=== PATIENT | female | born 1940 | race Caucasian/White ===

== ENCOUNTER 2021-09-08 11:01 | Day surgery (SDC) | payer OTHER ==
[2021-09-07 12:43] LABS: BASOPHILS % (AUTO) 0.8 % (0-1); EOSINOPHILS # (AUTO) 0.2 X10'3 (0-0.9); HEMATOCRIT 43.7 % (35.0-45.0); HEMOGLOBIN 14.4 g/dl (12.0-16.0); LYMPHOCYTES # (AUTO) 1.7 X10'3 (1.1-4.8); LYMPHOCYTES % (AUTO) 28.3 % (21-51); MEAN CORPUSCULAR HEMOGLOBIN 30.3 PG (27.0-31.0); MEAN CORPUSCULAR HGB CONC 32.9 g/dL (33.0-36.5); MEAN PLATELET VOLUME 8.6 FL (7.4-10.4); MONOCYTES # (AUTO) 0.5 X10'3 (0-0.9); MONOCYTES % (AUTO) 8.6 % (2-12); NEUTROPHILS # (AUTO) 3.6 X10'3 (1.8-7.7); NEUTROPHILS % (AUTO) 59.3 % (42-75); PLATELET COUNT 259 X10'3 (140-440); RED BLOOD COUNT 4.75 X10'6 (4.20-5.60); RED CELL DISTRIBUTION WIDTH 14.5 % (11.5-14.5); WHITE BLOOD COUNT 6.1 X10'3 (4.5-11.0)
[2021-09-07 12:45] LABS: ALBUMIN 3.6 G/DL (3.4-5.0); ANION GAP 10 (8-16); BLOOD UREA NITROGEN 22 MG/DL (7-18); BUN/CREATININE RATIO 19.6 (6.6-38.0); CALCIUM 8.9 MG/DL (8.5-10.1); CHLORIDE 108 MMOL/L (99-107); CREATININE 1.12 MG/DL (0.40-0.90); GLUCOSE 111 MG/DL (70-104); POTASSIUM 4.2 MMOL/L (3.5-5.1); SODIUM 143 MMOL/L (135-145); TOTAL CARBON DIOXIDE 25.2 MMOL/L (24-32); eGFR 47 ML/MIN
[2021-09-07 12:49] LABS: APTT 26 SECONDS (22-32)
[~2021-09-08] VITALS: Ht 175.3 cm; Wt 75.7 kg
[2021-09-08] VITALS (9 sets, daily range): BP systolic 126–149; BP diastolic 49–98
[2021-09-08] MEDS ORDERED: diphenhydrAMINE 25mg capsule PO PRN (11:15)
[2021-09-08] MEDS ORDERED: LORazepam 0.5 MG tablet PO PRN (11:15)
[2021-09-08] MEDS ORDERED: LEVO50CA4 PO (13:21)
[2021-09-08] MEDS ORDERED: ATOR20TA PO (13:21)
[2021-09-08] MEDS ORDERED: CALC-965 PO (13:21)
[2021-09-08] MEDS ORDERED: APIX2.5T PO (13:21)
[2021-09-08] MEDS ORDERED: FURO-150 PO (13:21)
[2021-09-08] MEDS ORDERED: VALS80TA2 PO (13:21)
[2021-09-08] MEDS ORDERED: CARV6.253 PO (13:21)
[2021-09-08] MEDS ORDERED: midazolam 1 mg/ML 2ml injection ONE (13:59)
[2021-09-08] MEDS ORDERED: fentaNYL/PF 50MCG/1 ML 2ML syringe ONE (13:59)
[2021-09-08] MEDS ORDERED: verapamil 2.5 mg/ml inj IV ONE (13:59)
[2021-09-08] MEDS ORDERED: LIDOcaine 1%/PF 5ML 10 MG/ML VIAL ONE (13:59)
[2021-09-08] MEDS ORDERED: nitroGLYCERIN-Tridil 50MG/D5W 250 ML IV ONE (14:00)
[2021-09-08] MEDS ORDERED: heparin 1,000unit/ml 10ml vial 10 ML ONE (14:00)
[2021-09-08] MEDS ORDERED: iohexol 350MG/ML 100ml bottle IV ONE (15:11)
[2021-09-08] MEDS ORDERED: LIDOcaine 1% 30ml preserv. free vial ONE (15:21)
--- NOTE | 2021-09-08 16:20 | NUR ---
Pt back in room. VS stable, radial site stable, right grown site stable. Will continue to monitor.
[2021-09-08] MEDS ORDERED: normal saline 1000ml 1,000 ML IV SCH (16:25)
--- NOTE | 2021-09-08 18:24 | NUR ---
Problems reprioritized. Patient report given, questions answered & plan of care reviewed with Angelique MCINTOSH.
[2021-09-13 06:14] LABS: ISTAT Hct MIX 39 %PCV (35-48); ISTAT O2 SATURATION MIX VENOUS 92 % (60-80); ISTAT SOURCE BLNK
[2021-09-13 06:14] LABS: ISTAT Hct MIX 39 %PCV (35-48); ISTAT O2 SATURATION MIX VENOUS 58 % (60-80); ISTAT SOURCE BLNK
== END 2021-09-08 20:35 | disposition home or self-care (01) ==
LOC: SSTAY O 11:01
PROVIDERS: ATTEND Internal Medicine Cardiovascular Disease
DX: R94.39 Abnormal result of other cardiovascular function study (principal); I25.10 Atherosclerotic heart disease of native coronary artery without angina pectoris; E78.5 Hyperlipidemia, unspecified; E11.21 Type 2 diabetes mellitus with diabetic nephropathy; E03.9 Hypothyroidism, unspecified; I42.9 Cardiomyopathy, unspecified; I11.0 Hypertensive heart disease with heart failure; Z79.899 Other long term (current) drug therapy; Z98.890 Other specified postprocedural states; Z90.710 Acquired absence of both cervix and uterus; I50.9 Heart failure, unspecified; Z95.0 Presence of cardiac pacemaker
CPT/HCPCS: 36415; 80048; 82803; 85014; 85025; 85610; 85730; 93005; 93460; 99152; A6258; C1751; C1769; C1894; J1644; J2250; J3010; J3490; J7030; Q0163; Q9967; 99153; A4620; A6402

== ENCOUNTER 2022-05-24 06:06 | Day surgery (SDC) | payer BC ==
[2022-05-24] VITALS (11 sets, daily range): BP systolic 123–188; BP diastolic 83–108
[~2022-05-24] VITALS: Ht 175.3 cm; Wt 77.1 kg
[~2022-05-24 06:06] MED LIST: APIX2.5T PO; ATOR20TA PO; CARV-50 PO; CHOL500050 PO; FURO-150 PO; LEVO50CA4 PO; VALS80TA2 PO
[2022-05-24] MEDS ORDERED: LORazepam 0.5 MG tablet PO ONE (06:35)
[2022-05-24] MEDS ORDERED: diphenhydrAMINE 25mg capsule PO ONE (06:35)
[2022-05-24] MEDS ORDERED: atropine 0.1mg/ml 10ml syringe IV ONE (06:35)
[2022-05-24] MEDS ORDERED: normal saline 1000ml 1,000 ML IV SCH (06:35)
[2022-05-24] MEDS ORDERED: amiodarone 150mg/dext, iso-os 100 ML IV ONE (06:35)
[2022-05-24] MEDS ORDERED: MIDAZolam 1mg/ml 10ml vial IV ONE (06:35)
[2022-05-24] MEDS ORDERED: morphine 10mg/ml inj. IV ONE (06:35)
[2022-05-24] MEDS ORDERED: CARV-50 PO (07:18)
[2022-05-24 07:29] LABS: BASOPHILS # (AUTO) 0.1 X10'3 (0-0.2); BASOPHILS % (AUTO) 1.1 % (0-1); EOSINOPHILS # (AUTO) 0.2 X10'3 (0-0.9); EOSINOPHILS % (AUTO) 2.9 % (0-6); HEMATOCRIT 45.6 % (35.0-45.0); HEMOGLOBIN 15.3 g/dl (12.0-16.0); LYMPHOCYTES # (AUTO) 1.2 X10'3 (1.1-4.8); MEAN CORPUSCULAR HEMOGLOBIN 31.5 PG (27.0-31.0); MEAN CORPUSCULAR HGB CONC 33.6 g/dL (33.0-36.5); MEAN CORPUSCULAR VOLUME 93.7 FL (78-98); MEAN PLATELET VOLUME 8.3 FL (7.4-10.4); MONOCYTES # (AUTO) 0.6 X10'3 (0-0.9); MONOCYTES % (AUTO) 9.1 % (2-12); NEUTROPHILS # (AUTO) 4.5 X10'3 (1.8-7.7); NEUTROPHILS % (AUTO) 67.9 % (42-75); PLATELET COUNT 246 X10'3 (140-440); RED BLOOD COUNT 4.87 X10'6 (4.20-5.60); RED CELL DISTRIBUTION WIDTH 15.3 % (11.5-14.5); WHITE BLOOD COUNT 6.6 X10'3 (4.5-11.0)
[2022-05-24 07:42] LABS: ALBUMIN 3.7 G/DL (3.4-5.0); ANION GAP 8 (8-16); BLOOD UREA NITROGEN 31 MG/DL (7-18); CALCIUM 9.2 MG/DL (8.5-10.1); CHLORIDE 110 MMOL/L (99-107); CREATININE 1.35 MG/DL (0.40-0.90); GLUCOSE 138 MG/DL (70-104); POTASSIUM 3.8 MMOL/L (3.5-5.1); SODIUM 144 MMOL/L (135-145); TOTAL CARBON DIOXIDE 26.2 MMOL/L (24-32); eGFR 38 ML/MIN
== END 2022-05-24 11:35 | disposition home or self-care (01) ==
LOC: SSTAY O 06:06
PROVIDERS: ATTEND Internal Medicine Cardiovascular Disease
DX: I48.0 Paroxysmal atrial fibrillation (principal); E11.9 Type 2 diabetes mellitus without complications; I10 Essential (primary) hypertension; E78.5 Hyperlipidemia, unspecified; I42.9 Cardiomyopathy, unspecified; Z95.810 Presence of automatic (implantable) cardiac defibrillator; Z79.899 Other long term (current) drug therapy
CPT/HCPCS: 36415; 80048; 82948; 85025; 92960; 93005

== ENCOUNTER 2023-03-17 11:17 | Day surgery (SDC) | payer BC ==
[2023-03-16 13:01] LABS: BASOPHILS # (AUTO) 0.1 X10'3 (0-0.2); BASOPHILS % (AUTO) 1.2 % (0-1); EOSINOPHILS # (AUTO) 0.1 X10'3 (0-0.9); EOSINOPHILS % (AUTO) 2.5 % (0-6); HEMATOCRIT 49.2 % (35.0-45.0); HEMOGLOBIN 16.1 g/dl (12.0-16.0); LYMPHOCYTES # (AUTO) 1.5 X10'3 (1.1-4.8); LYMPHOCYTES % (AUTO) 31.1 % (21-51); MEAN CORPUSCULAR HEMOGLOBIN 31.8 PG (27.0-31.0); MEAN CORPUSCULAR HGB CONC 32.7 g/dL (33.0-36.5); MEAN CORPUSCULAR VOLUME 97.2 FL (78-98); MEAN PLATELET VOLUME 8.5 FL (7.4-10.4); MONOCYTES # (AUTO) 0.5 X10'3 (0-0.9); MONOCYTES % (AUTO) 9.7 % (2-12); NEUTROPHILS # (AUTO) 2.7 X10'3 (1.8-7.7); NEUTROPHILS % (AUTO) 55.5 % (42-75); PLATELET COUNT 192 X10'3 (140-440); RED BLOOD COUNT 5.06 X10'6 (4.20-5.60); RED CELL DISTRIBUTION WIDTH 15.6 % (11.5-14.5); WHITE BLOOD COUNT 4.9 X10'3 (4.5-11.0)
[2023-03-16 13:13] LABS: ALBUMIN 3.7 G/DL (3.4-5.0); ANION GAP 10 (8-16); BLOOD UREA NITROGEN 27 MG/DL (7-18); BUN/CREATININE RATIO 20.3 (10.0-20.0); CALCIUM 9.3 MG/DL (8.5-10.1); CHLORIDE 107 MMOL/L (99-107); CREATININE 1.33 MG/DL (0.40-0.90); GLUCOSE 110 MG/DL (70-104); POTASSIUM 3.4 MMOL/L (3.5-5.1); SODIUM 143 MMOL/L (135-145); TOTAL CARBON DIOXIDE 26.5 MMOL/L (24-32); eGFR 38 ML/MIN
[2023-03-16 13:16] LABS: INR 1.1 INR; PROTHROMBIN TIME 12.2 SECONDS (9.0-12.0)
[~2023-03-17] VITALS: Ht 175.3 cm; Wt 66.8 kg
[2023-03-17] VITALS (14 sets, daily range): BP systolic 139–179; BP diastolic 86–104; PULSE 80–86; RESP 12–16; O2SAT 96–99
[~2023-03-17 11:17] MED LIST changes: -CARV-50 PO; +CARV6.253 PO; +EMPA10TA PO; +VALS40TA2 PO; -VALS80TA2 PO
[2023-03-17] MEDS ORDERED: MIDAZolam 1mg/ml 10ml vial IV ONE (11:30)
[2023-03-17] MEDS ORDERED: morphine 10mg/ml inj. IV ONE (11:30)
[2023-03-17] MEDS ORDERED: amiodarone 150mg/dext, iso-os 100 ML IV ONE (11:30)
[2023-03-17] MEDS ORDERED: normal saline 1000ml 1,000 ML IV SCH (11:30)
[2023-03-17] MEDS ORDERED: diphenhydrAMINE 25mg capsule PO ONE (11:30)
[2023-03-17] MEDS ORDERED: atropine 0.1mg/ml 10ml syringe IV ONE (11:30)
[2023-03-17] MEDS ORDERED: LORazepam 0.5 MG tablet PO ONE (11:30)
[2023-03-17] MEDS ORDERED: ATOR20TA66 PO (11:38)
[2023-03-17] MEDS ORDERED: AMI200T PO (11:38)
[2023-03-17] MEDS ORDERED: CALC-159 PO (11:38)
[2023-03-17] MEDS ORDERED: VALS80TA32 PO (11:38)
[2023-03-17] MEDS ORDERED: VALS40TA2 PO (11:39)
[2023-03-17 12:03] LABS: ALBUMIN 4.2 G/DL (3.4-5.0); ANION GAP 12 (8-16); BLOOD UREA NITROGEN 28 MG/DL (7-18); BUN/CREATININE RATIO 21.2 (10.0-20.0); CALCIUM 9.5 MG/DL (8.5-10.1); CHLORIDE 105 MMOL/L (99-107); CREATININE 1.32 MG/DL (0.40-0.90); GLUCOSE 107 MG/DL (70-104); POTASSIUM 3.8 MMOL/L (3.5-5.1); SODIUM 143 MMOL/L (135-145); TOTAL CARBON DIOXIDE 25.6 MMOL/L (24-32); eCRCL 34 ML/MIN; eGFR 38 ML/MIN
== END 2023-03-17 14:28 | disposition home or self-care (01) ==
LOC: SSTAY O 11:17
PROVIDERS: ATTEND Internal Medicine Cardiovascular Disease
DX: I48.0 Paroxysmal atrial fibrillation (principal); I25.10 Atherosclerotic heart disease of native coronary artery without angina pectoris; I42.8 Other cardiomyopathies; E78.5 Hyperlipidemia, unspecified; I11.0 Hypertensive heart disease with heart failure; I50.32 Chronic diastolic (congestive) heart failure; E03.9 Hypothyroidism, unspecified; E11.21 Type 2 diabetes mellitus with diabetic nephropathy; M54.30 Sciatica, unspecified side; I36.1 Nonrheumatic tricuspid (valve) insufficiency; Z79.899 Other long term (current) drug therapy; Z95.810 Presence of automatic (implantable) cardiac defibrillator; Z79.01 Long term (current) use of anticoagulants; Z90.710 Acquired absence of both cervix and uterus; Z90.49 Acquired absence of other specified parts of digestive tract; Z98.890 Other specified postprocedural states
CPT/HCPCS: 36415; 80048; 85025; 85610; 92960; 93005; J2250; J2274; J7030; A4620

== ENCOUNTER 2023-06-13 13:08 | Inpatient (IN) | payer BC ==
[~2023-06-13] VITALS: Ht 175.3 cm; Wt 54.5 kg
[~2023-06-13 13:08] MED LIST changes: +AMI200T PO; -ATOR20TA PO; +ATOR20TA66 PO; +CALC-159 PO; -CHOL500050 PO; -LEVO50CA4 PO
[2023-06-13 13:41] LABS: BASOPHILS % (AUTO) 0.8 % (0-1); EOSINOPHILS # (AUTO) 0.1 X10'3 (0-0.9); EOSINOPHILS % (AUTO) 2.4 % (0-6); HEMATOCRIT 45.8 % (35.0-45.0); HEMOGLOBIN 15.4 g/dl (12.0-16.0); LYMPHOCYTES # (AUTO) 1.4 X10'3 (1.1-4.8); MEAN CORPUSCULAR HEMOGLOBIN 31.8 PG (27.0-31.0); MEAN CORPUSCULAR HGB CONC 33.6 g/dL (33.0-36.5); MEAN CORPUSCULAR VOLUME 94.9 FL (78-98); MEAN PLATELET VOLUME 9.2 FL (7.4-10.4); MONOCYTES # (AUTO) 0.5 X10'3 (0-0.9); MONOCYTES % (AUTO) 8.4 % (2-12); NEUTROPHILS # (AUTO) 3.7 X10'3 (1.8-7.7); NEUTROPHILS % (AUTO) 64.4 % (42-75); PLATELET COUNT 224 X10'3 (140-440); RED BLOOD COUNT 4.83 X10'6 (4.20-5.60); RED CELL DISTRIBUTION WIDTH 15.8 % (11.5-14.5); WHITE BLOOD COUNT 5.7 X10'3 (4.5-11.0)
[2023-06-13 13:53] LABS: ALANINE AMINOTRANSFERASE 19 U/L (12-78); ALBUMIN 3.8 G/DL (3.4-5.0); ALBUMIN/GLOBULIN RATIO 1.2 (1.1-1.5); ALKALINE PHOSPHATASE 124 IU/L (46-116); ANION GAP 7 (8-16); ASPARTATE AMINO TRANSFERASE 27 U/L (10-37); BLOOD UREA NITROGEN 33 MG/DL (7-18); CALCIUM 8.7 MG/DL (8.5-10.1); CHLORIDE 106 MMOL/L (99-107); GLUCOSE 156 MG/DL (70-104); POTASSIUM 3.8 MMOL/L (3.5-5.1); SODIUM 144 MMOL/L (135-145); TOTAL CARBON DIOXIDE 30.8 MMOL/L (24-32); TOTAL PROTEIN 7.1 G/DL (6.4-8.2); eGFR 33 ML/MIN
[2023-06-13 13:54] LABS: PRO BRAIN NATRIURETIC PEPTIDE 406 PG/ML (0-450)
[2023-06-13] MEDS ORDERED: acetaminophen 325mg tablet PO PRN (17:35)
[2023-06-13] MEDS ORDERED: potassium Cl 20 mEq SR tablet PO PRN ×2 (17:35)
[2023-06-13] MEDS ORDERED: dextrose 50%-water 50ml dispensing syringe IV PRN ×2 (17:35)
[2023-06-13] MEDS ORDERED: ondansetron/PF 4mg/2ml inj IV PRN (17:35)
[2023-06-13] MEDS ORDERED: magnesium hydroxide 30ml (MOM) UD suspension PO PRN (17:35)
[2023-06-13] MEDS ORDERED: magnesium 2GM in 50ml NS 50 ML IV PRN (17:35)
[2023-06-13] MEDS ORDERED: DEXTROSE 15 GM of carb/4 tabs (each vial/BOTTLE has 4 tablets) PO PRN ×2 (17:35)
[2023-06-13] MEDS ORDERED: mag hydrox/Alum hydrox/simeth 30ml oral suspension PO PRN (17:35)
[2023-06-13] MEDS ORDERED: potassium Cl 40MEQ/1/2NS 520ml 520 ML IV PRN (17:35)
[2023-06-13] MEDS ORDERED: INSULIN LISPRO 100 UNIT/ML INSULN.PEN MULTI-DOSE SQ SCH (17:35)
[2023-06-13] MEDS ORDERED: magnesium 4gm in 100ml NS 100 ML IV PRN (17:35)
[2023-06-13] MEDS ORDERED: glucagon, human recombinant 1mg kit SUBCUT PRN (17:35)
[2023-06-13] MEDS ORDERED: aminophylline 250mg/10ml inj. IV PRN (17:50)
[2023-06-13] MEDS ORDERED: nitroGLYCERIN 0.4mg SUBLingual tab SL PRN (17:50)
[2023-06-13] MEDS ORDERED: metoprolol tartrate 1mg/ml inj IV PRN (17:50)
[2023-06-13] MEDS: MESSAGE TO PHARMACY PO ONE (18:31)
[2023-06-13] MEDS: PERFLUTREN PROTEIN-A MICROSPHR (Optison) 0.22 MG/ML 3ML VIAL IV ONE (18:31)
[2023-06-13] MEDS: docusate sod 100mg capsule PO SCH (20:00)
[2023-06-13] MEDS: K and/or MAG REPLACEMENT MC SCH (20:00)
[2023-06-13] MEDS: insulin glargine (Lantus) pen - multi-dose SQ SCH (21:00)
[2023-06-13] MEDS ORDERED: APIX5TAB3 PO (21:41)
[2023-06-13 22:10] VITALS: BP 120/78; PULSE 78; RESP 18; TEMP 97.9; O2SAT 97
[2023-06-13] MEDS ORDERED: CARV6.253 PO (22:37)
[2023-06-14] VITALS (12 sets, daily range): BP systolic 90–159; BP diastolic 50–86; PULSE 80–85; RESP 16–22; TEMP 98–98.6; O2SAT 96–100
[2023-06-14 06:39] LABS: BASOPHILS % (AUTO) 0.7 % (0-1); EOSINOPHILS # (AUTO) 0.1 X10'3 (0-0.9); EOSINOPHILS % (AUTO) 2.8 % (0-6); HEMATOCRIT 39.9 % (35.0-45.0); HEMOGLOBIN 13.6 g/dl (12.0-16.0); LYMPHOCYTES # (AUTO) 1.6 X10'3 (1.1-4.8); LYMPHOCYTES % (AUTO) 30.4 % (21-51); MEAN CORPUSCULAR HEMOGLOBIN 31.9 PG (27.0-31.0); MEAN CORPUSCULAR VOLUME 93.8 FL (78-98); MEAN PLATELET VOLUME 9.1 FL (7.4-10.4); MONOCYTES # (AUTO) 0.6 X10'3 (0-0.9); NEUTROPHILS # (AUTO) 2.8 X10'3 (1.8-7.7); NEUTROPHILS % (AUTO) 55.1 % (42-75); PLATELET COUNT 191 X10'3 (140-440); RED BLOOD COUNT 4.26 X10'6 (4.20-5.60); RED CELL DISTRIBUTION WIDTH 15.8 % (11.5-14.5); WHITE BLOOD COUNT 5.2 X10'3 (4.5-11.0)
[2023-06-14 06:51] LABS: ALANINE AMINOTRANSFERASE 15 U/L (12-78); ALKALINE PHOSPHATASE 97 IU/L (46-116); ANION GAP 7 (8-16); ASPARTATE AMINO TRANSFERASE 27 U/L (10-37); BILIRUBIN,TOTAL 0.7 MG/DL (0.1-1.0); BLOOD UREA NITROGEN 29 MG/DL (7-18); BUN/CREATININE RATIO 22.3 (10.0-20.0); CALCIUM 8.6 MG/DL (8.5-10.1); CHLORIDE 110 MMOL/L (99-107); GLUCOSE 98 MG/DL (70-104); MAGNESIUM 2.1 MG/DL (1.5-2.4); POTASSIUM 3.6 MMOL/L (3.5-5.1); SODIUM 145 MMOL/L (135-145); THYROID STIMULATING HORMONE 2.36 ulU/ml (0.34-4.50); TOTAL CARBON DIOXIDE 28.2 MMOL/L (24-32); TOTAL PROTEIN 5.9 G/DL (6.4-8.2); eCRCL 28 ML/MIN; eGFR 39 ML/MIN
[2023-06-14] MEDS: regadenoson 0.4mg/5ml syringe IV PRN (09:47)
[2023-06-14] MEDS ORDERED: ISOS30TA84 PO (12:05)
[2023-06-14] MEDS ORDERED: PANT40TA54 PO (12:16)
[2023-06-14] MEDS: isosorbide mononitrate 30mg tab.SR.24H PO ONE (12:26)
== END 2023-06-14 16:40 | disposition home or self-care (01) | DRG 280 ==
LOC: ER 13:08 → ED HOLD 17:45 → PCU 3S 21:09
PROVIDERS: ADMIT Family Medicine; ATTEND Family Medicine
PROC: 4A02XM4 Measurement of Cardiac Total Activity, External Approach (ICD-10-PCS; principal; 2023-06-14)
PROC: 3E073KZ Introduction of Other Diagnostic Substance into Coronary Artery, Percutaneous Approach (ICD-10-PCS; 2023-06-14)
DX: R07.89 Other chest pain (principal); I21.A1 Myocardial infarction type 2; N17.0 Acute kidney failure with tubular necrosis; I42.8 Other cardiomyopathies; K21.9 Gastro-esophageal reflux disease without esophagitis; I48.91 Unspecified atrial fibrillation; I25.10 Atherosclerotic heart disease of native coronary artery without angina pectoris; I50.9 Heart failure, unspecified; I11.0 Hypertensive heart disease with heart failure; Z20.822 Contact with and (suspected) exposure to COVID-19; K58.9 Irritable bowel syndrome, unspecified; E11.9 Type 2 diabetes mellitus without complications; E78.5 Hyperlipidemia, unspecified; E03.9 Hypothyroidism, unspecified; Z95.810 Presence of automatic (implantable) cardiac defibrillator; Z90.710 Acquired absence of both cervix and uterus; Z88.0 Allergy status to penicillin; Z79.01 Long term (current) use of anticoagulants; Z79.899 Other long term (current) drug therapy; Z79.84 Long term (current) use of oral hypoglycemic drugs; I25.2 Old myocardial infarction; Z85.71 Personal history of Hodgkin lymphoma; Z80.7 Family history of other malignant neoplasms of lymphoid, hematopoietic and related tissues; Z95.1 Presence of aortocoronary bypass graft
CPT/HCPCS: 36415; 71045; 78452; 80053; 82948; 83735; 83880; 84443; 84484; 85025; 87081; 87811; 93005; 93017; 93306; 97116; 97161; 97530; 99285; A9500; G0378; J1815; J2785

== ENCOUNTER 2024-11-20 19:03 | Emergency (ER) | payer BC ==
[~2024-11-20] VITALS: Ht 175.3 cm; Wt 58.0 kg
[~2024-11-20 19:03] MED LIST changes: -AMI200T PO; +AMIO200T76 PO; -CALC-159 PO; -EMPA10TA PO; +ISOS30TA84 PO; +PANT40TA54 PO
[2024-11-20 19:40] VITALS: BP 160/88; PULSE 73; RESP 18; O2SAT 98
--- NOTE | 2024-11-20 19:57 | Physician Documentation ---
History of Present Illness ~ Chief Complaint: Mechanical Fall Stated Complaint: BACK/HIP PAIN Time Seen by MD: 19:46 HPI Patient is seen today with a family member or close friend with complaints of pain of her left hip after she sustained a ground level fall about a week ago. Patient is ambulatory. She also complains of some acute on chronic low back pain. She denies any saddle anesthesia or changes in bowel or bladder habits or numbness or tingling of her lower extremities and states the pain of her left hip is superficial and states as she had worse swelling and ecchymosis that has since decreased since date of injury. Patient has no other concern or complaint at this time. Tetanus within 5 Years?: No Medication Reconciliation Allergies: Coded Allergies: Penicillins (Verified Allergy, Unknown, 06/13/23) Scheduled Amiodarone Hcl (Cordarone), 1 TAB PO BID, (Reported) Apixaban (Eliquis), 5 MG PO Q12H, (Reported) Atorvastatin Calcium (Atorvastatin Calcium), 1 TAB PO DAILY, (Reported) Carvedilol (Carvedilol), 1 TAB PO Q12H, (Reported) Furosemide* (Lasix*), 1 TAB PO DAILY, (Reported) Isosorbide Mononitrate (Isosorbide Mononitrate Er), 1 TAB PO DAILY Pantoprazole Sodium (Pantoprazole Sodium), 40 MG PO DAILY Valsartan (Diovan), 40 MG PO BID, (Reported) Past Medical History Past Medical History: Angina, Atrial Fibrillation, Coronary Artery Disease, Congestive Heart Failure, Hypertension, Myocardial Infarction Past Surgical History: angioplasty, coronary bypass surgery, orthopedic surgeries Patient History: Hodgkin's lymphoma MOTHER Alcohol Use: None Drug Use: none Lives with: Alone Lives In: Home Review of Systems Constitutional: Denies: chills, fever, weakness Eyes: Denies: pain, blurred vision ENT: Denies: ear pain, nose pain, throat pain, mouth pain Respiratory: Denies: cough, shortness of breath Cardiovascular: Denies: chest pain, palpitations Gastrointestinal: Denies: abdominal pain, nausea, vomiting Genitourinary: Denies: burning, dysuria Female Genitalia: Denies: vaginal discharge, pelvic pain Neurological: Denies: headache, dizziness Musculoskeletal: Denies: pain, swelling Integumentary: Denies: rash, lesions Allergic/Immunologic: Denies: hives, itching Hematologic/Lymphatic: Denies: no symptoms reported Psychiatric: Denies: depression, anxiety Physical Exam Physical Exam General: Awake and Alert, no acute distress. HEENT: Conjunctiva pink, Sclera clear, Mucus Membranes moist. Neck: Supple without masses and tenderness. Resp: Unlabored. Lungs clear to auscultation bilaterally. Heart: Regular Rate and rhythm, normal S1 and S2 without murmur, rub or gallop. Abdomen: Soft and non tender no organomegaly Extremities: No cyanosis,clubbing or edema. Skin: Warm and Dry. Medical Decision Making Findings Patient is seen today with a family member or close friend with complaints of pain of her left hip after she sustained a ground level fall about a week ago. Patient is ambulatory. She also complains of some acute on chronic low back pain. She denies any saddle anesthesia or changes in bowel or bladder habits or numbness or tingling of her lower extremities and states the pain of her left hip is superficial and states as she had worse swelling and ecchymosis that has since decreased since date of injury. Patient has no other concern or complaint at this time. Patient is and I did have a discussion about possibility for x-rays and as patient is currently ambulatory we decided against x-rays at this time. Patient will continue to monitor improvement and resolution of symptoms and will follow up with primary care in 3-5 days if no better as needed sooner. Return to ED with any worsening, concerning or changing symptoms. Departure Disposition: HOME / SELF CARE / HOMELESS Impression: Primary Impression: Acute on chronic low back pain Additional Impression: Left hip pain Condition: Stable Discharge Instructions: Fall Prevention in the Home, Adult, [id number] Additional Instructions: Patient is and I did have a discussion about possibility for x-rays and as patient is currently ambulatory we decided against x-rays at this time. Patient will continue to monitor improvement and resolution of symptoms and will follow up with primary care in 3-5 days if no better as needed sooner. Return to ED with any worsening, concerning or changing symptoms. Referrals: NO PRIMARY CARE PROVIDER (PCP) Signature Scribe Signature: No scribe Attestation: No scribe TERRENCE MARTELL PAC Nov 20, 2024 19:57
== END 2024-11-20 20:07 | disposition home or self-care (01) ==
LOC: ER 19:03
DX: G89.29 Other chronic pain (principal); M54.50 Low back pain, unspecified; M25.552 Pain in left hip; I48.91 Unspecified atrial fibrillation; I25.10 Atherosclerotic heart disease of native coronary artery without angina pectoris; I11.0 Hypertensive heart disease with heart failure; I50.9 Heart failure, unspecified; I25.2 Old myocardial infarction; Z88.8 Allergy status to other drugs, medicaments and biological substances; Z95.1 Presence of aortocoronary bypass graft; Z88.0 Allergy status to penicillin
CPT/HCPCS: 99282

== ENCOUNTER 2025-01-15 10:28 | Outpatient (CLI) | payer BC ==
[~2025-01-15] VITALS: Ht 174 cm; Wt 55.3 kg
[2025-01-15 10:45] LABS: TOTAL HEMOGLOBIN 15.1 G/dl (12.0-16.0)
[2025-01-15 12:00] VITALS: PULSE 70; RESP 16; O2SAT 97
[2025-01-15] MEDS: albuterol 2.5 MG/3 ML nebule NEB ONE (12:08)
--- NOTE | 2025-01-15 14:33 | PROCEDURE NOTE - Respiratory ---
Procedure Note-Respiratory Providers to CC Copies To 1: ALFA ARORA MD Procedure Name: This is a complete pulmonary function study dated January 15, 2025. Hemoglobin measurement was done as part of the study. Spirometry measurements: Both the forced vital capacity and the FEV1 are normal. The FEV1 ratio is normal. The flow rate measurements are normal. Bronchodilator was not administered as part of the study. Lung volume measurements: All of the major lung volume determinations are normal. Lung diffusion measurement: The DLCO measurement is borderline reduced. It is noted that the KVO measurement is in the normal range. The alveolar volume measurement is somewhat reduced. It is noted that the hemoglobin measurement is in the normal range. Airway resistance measurement: The airway resistance measurement is normal. Conclusion: Normal pulmonary function study. We have no previous studies for comparison. If this patient continues to use amiodarone, it is recommended that repeat pulmonary function testing be considered in approximately 12 months. JOELLE BARNETT MD Jan 15, 2025 14:33
== END 2025-01-15 23:59 | disposition home or self-care (01) ==
LOC: RT 10:28
PROVIDERS: ATTEND Internal Medicine Cardiovascular Disease
DX: R06.02 Shortness of breath (principal); Z79.899 Other long term (current) drug therapy
CPT/HCPCS: 85018; 94010; 94727; 94729; 94760